=== PATIENT | male | born 1980 | race Caucasian/White ===

== ENCOUNTER 2018-12-04 18:32 | Emergency (ER) | payer SELFPAY ==
--- NOTE | 2018-12-04 18:35 | ER Report ---
History and Physical Time Seen By MD: 18:34 HPI/ROS CHIEF COMPLAINT: Blurry vision, intraparenchymal hemorrhage HISTORY OF PRESENT ILLNESS: Patient is a 38-year-old male here with complaints of left frontal visual field blurry vision which developed approximately one week ago after the patient was helping a friend move. Patient reports lifting heavy objects at which time he developed a headache, blurry vision. Today he was seen by an lace cutter who referred the patient to the emergency department however the patient decided to proceed to the urgent care. Patient was identified to have a small right occipital intraparenchymal hemorrhage with surrounding edema which prompted transfer to the emergency department. Patient denies motor weakness, new paresthesias. He does describe left frontal visual field deficits but denies diplopia. Patient denies having a headache at this time, difficulty breathing, difficulty swallowing, fevers or chills, chest pain or shortness breath. REVIEW OF SYSTEMS: Constitutional: No fever, no chills. Eyes: + left frontal visual field deficits with blurry vision ENT: No sore throat. Cardiovascular: No chest pain, no palpitations. Respiratory: No cough, no shortness of breath. Gastrointestinal: No abdominal pain, no vomiting. Genitourinary: No hematuria. Musculoskeletal: No back pain. Skin: No rashes. Neurological: No headache, + blurry vision, no motor weaknesses, CN intact Allergies: Coded Allergies: No Known Drug Allergies (Unverified , 12/04/18) Home Meds No Active Prescriptions or Reported Meds Constitutional Vital Sign - Last 24 Hours 12/04/18 12/04/18 12/04/18 12/04/18 18:37 18:47 19:00 19:02 Temp 98.6 Pulse 92 82 83 Resp 14 B/P (MAP) 166/117 153/109 (124) Pulse Ox 93 93 95 O2 Delivery Room Air 12/04/18 12/04/18 12/04/18 12/04/18 19:17 19:30 19:32 20:30 Pulse 85 ??? B/P (MAP) 150/108 (122) 148/108 (121) Pulse Ox 94 94 12/04/18 12/04/18 12/04/18 12/04/18 20:35 20:50 21:00 21:05 Pulse 78 ??? 84 Resp 25 42 19 B/P (MAP) 153/108 (123) Pulse Ox 94 94 94 12/04/18 12/04/18 12/04/18 12/04/18 21:20 21:30 21:35 21:50 Pulse ??? 83 89 Resp 40 28 13 B/P (MAP) 150/105 (120) Pulse Ox 94 94 93 12/04/18 12/04/18 12/04/18 12/04/18 21:55 22:10 22:25 22:30 Pulse 71 ? Resp 20 B/P (MAP) ???/??? (1665) 12/04/18 12/04/18 12/04/18 12/04/18 22:40 22:55 23:10 23:25 Pulse 73 87 ??? 71 Resp 14 51 8 21 Pulse Ox 94 95 91 12/04/18 23:40 Pulse ??? Resp 17 Pulse Ox 91 Physical Exam General Appearance: The patient is alert, has no immediate need for airway p rotection and no signs of toxicity. NAD Eyes: Pupils equal and round no pallor or injection, + EOMI intact ENT, Mouth: Mucous membranes are moist. Respiratory: There are no retractions, lungs are clear to auscultation. Cardiovascular: Regular rate and rhythm. Gastrointestinal: Abdomen is soft and non tender, no masses, bowel sounds normal. Neurological: Left frontal visual field deficits, CN intact, no motor weakness, dysphagia Skin: Warm and dry, no rashes. Musculoskeletal: Neck is supple non tender. Extremities are nontender, nonswollen and have full range of motion. DIFFERENTIAL DIAGNOSIS: After history and physical exam differential diagnosis was considered for intracranial hemorrhage, intraparenchymal hemorrhage, hypertensive hemorrhage, increased intracranial pressure, cerebral edema Medical Decision Making Data Points Result Diagram: 12/04/18 1845 12/04/18 184 Laboratory Hematology Test 12/04/18 18:45 Red Blood Count 4.36 M/uL (4.00-5.60) Mean Corpuscular Volume 99.7 fL (80.0-96.0) Mean Corpuscular Hemoglobin 34.2 pg (26.0-33.0) Mean Corpuscular Hemoglobin Concent 34.4 g/dL (32.0-36.0) Red Cell Distribution Width 14.1 % (11.5-14.5) Mean Platelet Volume 6.8 fL (7.2-11.1) Neutrophils (%) (Auto) 63.8 % (39.4-72.5) Lymphocytes (%) (Auto) 24.1 % (17.6-49.6) Monocytes (%) (Auto) 10.7 % (4.1-12.4) Eosinophils (%) (Auto) 0.8 % (0.4-6.7) Basophils (%) (Auto) 0.6 % (0.3-1.4) Nucleated RBC Relative Count (auto) 0.1 /100WBC Neutrophils # (Auto) 3.2 K/uL (2.0-7.4) Lymphocytes # (Auto) 1.2 K/uL (1.3-3.6) Monocytes # (Auto) 0.5 K/uL (0.3-1.0) Eosinophils # (Auto) 0.0 K/uL (0.0-0.5) Basophils # (Auto) 0.0 K/uL (0.0-0.1) Nucleated RBC Absolute Count (auto) 0.00 K/uL Peripheral Blood Smear Yes Y/N Erythrocyte Sedimentation Rate 4 mm/HOUR (0-15) Prothrombin Time 16.9 seconds (12.0-14.4) Prothromb Time International Ratio 1.36 Activated Partial Thromboplast Time 38 seconds (23-35) Sodium Level 134 mmol/L (137-145) Potassium Level 3.9 mmol/L (3.5-5.0) Chloride Level 95 mmol/L (98-107) Carbon Dioxide Level 22 mmol/L (22-30) Blood Urea Nitrogen 5 mg/dl (9-21) Creatinine 0.70 mg/dl (0.66-1.25) Glomerular Filtration Rate Calc > 60.0 Random Glucose 90 mg/dl (75-110) Calcium Level 9.0 mg/dl (8.4-10.2) Total Bilirubin 1.9 mg/dl (0.2-1.3) Aspartate Amino Transf (AST/SGOT) 149 U/L (0-35) Alanine Aminotransferase (ALT/SGPT) 71 U/L (0-56) Alkaline Phosphatase 76 U/L (0-126) Total Protein 8.2 g/dl (6.3-8.2) Albumin 4.6 g/dl (3.5-5.0) Chemistry Test 12/04/18 18:45 White Blood Count 5.0 k/uL (4.5-11.0) Red Blood Count 4.36 M/uL (4.00-5.60) Hemoglobin 14.9 g/dL (14.0-18.0) Hematocrit 43.4 % (42.0-52.0) Mean Corpuscular Volume 99.7 fL (80.0-96.0) Mean Corpuscular Hemoglobin 34.2 pg (26.0-33.0) Mean Corpuscular Hemoglobin Concent 34.4 g/dL (32.0-36.0) Red Cell Distribution Width 14.1 % (11.5-14.5) Platelet Count 74 K/uL (150-450) Mean Platelet Volume 6.8 fL (7.2-11.1) Neutrophils (%) (Auto) 63.8 % (39.4-72.5) Lymphocytes (%) (Auto) 24.1 % (17.6-49.6) Monocytes (%) (Auto) 10.7 % (4.1-12.4) Eosinophils (%) (Auto) 0.8 % (0.4-6.7) Basophils (%) (Auto) 0.6 % (0.3-1.4) Nucleated RBC Relative Count (auto) 0.1 /100WBC Neutrophils # (Auto) 3.2 K/uL (2.0-7.4) Lymphocytes # (Auto) 1.2 K/uL (1.3-3.6) Monocytes # (Auto) 0.5 K/uL (0.3-1.0) Eosinophils # (Auto) 0.0 K/uL (0.0-0.5) Basophils # (Auto) 0.0 K/uL (0.0-0.1) Nucleated RBC Absolute Count (auto) 0.00 K/uL Peripheral Blood Smear Yes Y/N Erythrocyte Sedimentation Rate 4 mm/HOUR (0-15) Prothrombin Time 16.9 seconds (12.0-14.4) Prothromb Time International Ratio 1.36 Activated Partial Thromboplast Time 38 seconds (23-35) Glomerular Filtration Rate Calc > 60.0 Calcium Level 9.0 mg/dl (8.4-10.2) Total Bilirubin 1.9 mg/dl (0.2-1.3) Aspartate Amino Transf (AST/SGOT) 149 U/L (0-35) Alanine Aminotransferase (ALT/SGPT) 71 U/L (0-56) Alkaline Phosphatase 76 U/L (0-126) Total Protein 8.2 g/dl (6.3-8.2) Albumin 4.6 g/dl (3.5-5.0) Coagulation Test 12/04/18 18:45 Prothrombin Time 16.9 seconds Prothromb Time International Ratio 1.36 Activated Partial Thromboplast Time 38 seconds EKG/Imaging Imaging PATIENT NAME: Wilian Tyler : 1980 MR: [id number] V: [id number] EXAM DATE: ORDERING PHYSICIAN: CORRINE BAKER TECHNOLOGIST: Location: [facility] Patient: Wilian Tyler : 1980 Visit/Account:[id number] Date of Sevice: 12/04/2018 EXAMINATION: MRI Brain without IV contrast MRI Brain with IV contrast 12/04/2018 6:35 PM HISTORY: IPH right occiput TECHNIQUE: Multi-planar, multi-sequence brain MRI was performed before and after IV gadolinium. Contrast: 15 mL of IV Multihance COMPARISON STUDIES: CT head today FINDINGS: Ventricles / sulci / fissures: negative Masses / hemorrhage / midline shift: Posterior medial right occipital hematoma measures 2.5 x 1.9 x 2.1 cm. There is some surrounding parenchymal edema. No underlying mass or vascular malformation evident. White matter: Edema adjacent to the occipital hematoma, as above. No significant acute finding otherwise. Torres-white differentiation: No acute stroke evident. Extra-axial spaces: negative Calvarium: negative Enhancement pattern: negative Vascular structures: negative Sagittal midline structures: negative Paranasal sinuses / mastoid air cells: Lobulated mucosal thickening or retention cyst formation within the maxillary's. Milder ethmoid sinus mucosal changes. Nasal septal deviation. Orbits: negative Visualized upper neck: negative IMPRESSION: 1. 2.5 cm acute hematoma in the posterior medial right occipital lobe. Small amount of surrounding parenchymal edema. No clear associated mass or vascular malformation as etiology for the bleeding demonstrated. A small focus might potentially be obscured by the hematoma. 2. Otherwise unremarkable study. Report Dictated By: Rodriguez Morales MD at 12/04/2018 9:16 PM ED Course/Re-evaluation ED Course Patient is a 38-year-old male who developed headache after lifting a heavy object approximately one week ago. Patient developed blurry vision especially in the left visual field which was evaluated today by ophthalmology prompting transfer to urgent care and subsequently to emergency department. CT imaging completed by urgent care identified a right is supple hemorrhagic bleed. Patient was evaluated in the emergency department at which time MRI was completed. Di agnosis was confirmed. I discussed the patient with Dr. Haq with neurosurgery at [facility] who accepted the patient in transfer. I discussed these findings with the patient and he voiced understanding and was transferred in stable condition to [place] for further treatment. Decision to Disposition Date: December 04, 2018 Decision to Disposition Time: 23:50 Depart Departure Latest Vital Signs Vital Signs Date Time Temp Pulse Resp B/P (MAP) Pulse Ox O2 Delivery O2 Flow Rate FiO2 12/04/18 23:40 ??? 17 91 12/04/18 22:30 ???/??? (1665) 12/04/18 18:37 98.6 Room Air Impression: Primary Impression: Intraparenchymal hemorrhage of brain Condition: Condition Unchanged Disposition: XFER TO [facility] New Scripts No Active Prescriptions or Reported Meds CORRINE BAKER DO December 04, 2018 18:35
[2018-12-04 18:51] LABS: PLATELET COUNT, AUTOMATED 74 K/uL (150-450)
[2018-12-04 19:09] LABS: INR 1.36
[2018-12-04] MEDS ORDERED: GADOBENATE 529MG/1ML 15ML VIAL IVP ONE (20:00)
--- NOTE | 2018-12-04 21:27 | RADIOLOGY IMAGING REPORT ---
FACILITY: [facility] - [place] PATIENT NAME: Wilian Tyler : 1980 MR: [id number] V: [id number] EXAM DATE: ORDERING PHYSICIAN: CORRINE BAKER TECHNOLOGIST: Location: [facility] - [place] Patient: Wilian Tyler : 1980 Visit/Account:[id number] Date of Sevice: 12/04/2018 EXAMINATION: MRI Brain without IV contrast MRI Brain with IV contrast 12/04/2018 6:35 PM HISTORY: IPH right occiput TECHNIQUE: Multi-planar, multi-sequence brain MRI was performed before and after IV gadolinium. Contrast: 15 mL of IV Multihance COMPARISON STUDIES: CT head today FINDINGS: Ventricles / sulci / fissures: negative Masses / hemorrhage / midline shift: Posterior medial right occipital hematoma measures 2.5 x 1.9 x 2 .1 cm. There is some surrounding parenchymal edema. No underlying mass or vascular malformation evide nt. White matter: Edema adjacent to the occipital hematoma, as above. No significant acute finding otherw ise. Torres-white differentiation: No acute stroke evident. Extra-axial spaces: negative Calvarium: negative Enhancement pattern: negative Vascular structures: negative Sagittal midline structures: negative Paranasal sinuses / mastoid air cells: Lobulated mucosal thickening or retention cyst formation withi n the maxillary's. Milder ethmoid sinus mucosal changes. Nasal septal deviation. Orbits: negative Visualized upper neck: negative IMPRESSION: 1. 2.5 cm acute hematoma in the posterior medial right occipital lobe. Small amount of surrounding pa renchymal edema. No clear associated mass or vascular malformation as etiology for the bleeding demon strated. A small focus might potentially be obscured by the hematoma. 2. Otherwise unremarkable study. Report Dictated By: Rodriguez Morales MD at 12/04/2018 9:16 PM Report E-Signed By: Rodriguez Morales MD at 12/04/2018 9:24 PM WSN:[id number]
== END 2018-12-05 00:50 | disposition short-term general hospital (02) ==
LOC: ER 18:49
DX: I61.8 Other nontraumatic intracerebral hemorrhage (principal)
CPT/HCPCS: 36415; 70553; 85025; 85610; 85651; 85730; 86850; 86900; 86901; 99285; A9577; 82040; 82247; 82310; 82374; 82435; 82565; 82947; 84075; 84132; 84155; 84295; 84450; 84460; 84520

== ENCOUNTER → 2018-12-04 | Outpatient (CLI) | payer SELFPAY ==
--- NOTE | 2018-12-04 18:09 | RADIOLOGY IMAGING REPORT ---
FACILITY: [facility] [place] PATIENT NAME: Wilian Tyler : 1980 MR: [id number] V: [id number] EXAM DATE: ORDERING PHYSICIAN: ANTONIO WISE TECHNOLOGIST: [place] [facility] [place] Patient: Wilian Tyler : 1980 Visit/Account:[id number] Date of Sevice: 12/04/2018 EXAMINATION: Head CT without intravenous contrast HISTORY: Blurred vision x1 week TECHNIQUE: Contiguous axial images were obtained from the skull base to the vertex without intraven ous contrast. Sagittal and coronal reformatted images are also submitted. Dose Lowering Technique One of the following dose optimization techniques was utilized in the performance of this exam: Autom ated exposure control; adjustment of the mA and/or kV according to the patient's size; or use of an i terative reconstruction technique. Specific details can be referenced in the facility's radiology C T exam operational policy. COMPARISON: None. FINDINGS: Brain volume: Normal. Ventricles: Normal. Acute ischemic changes: None. Hemorrhage: There is a 2.2 x 1.8 x 2.2 cm intraparenchymal hemorrhage with mild surrounding white ma tter edema although no significant mass effect located within the right occipital lobe. Masses / edema: As described above Torres-white: Negative. White matter: Normal. Vessels: Negative. Extra-axial: Negative. Calvarium / scalp: Negative. Skull base / visualized face: Negative. Visualized sinuses / orbits: There is marked deviation the nasal septum. There are polypoid lesions in both maxillary sinuses and possibly representing mucous retention cysts IMPRESSION: There is a 2.2 x 1.8 x 2.2 cm intraparenchymal hemorrhage with mild surrounding white matter edema in the right occipital lobe although no significant mass effect. The differential diagnosis would incl ude a vascular malformation with hemorrhage, hemorrhagic primary brain tumor, hemorrhagic metastasis, a posttraumatic hemorrhage or hypertensive hemorrhage. MR the brain with and without contrast recom mended Results were called to ANTONIO WISE at 12/04/2018 6:05 PM. Report Dictated By: Andie Esteban MD at 12/04/2018 5:51 PM Report E-Signed By: Andie Esteban MD at 12/04/2018 6:05 PM [id number]
== END ==
LOC: CT 16:56
PROVIDERS: ATTEND Nurse Practitioner Family
DX: H53.9 Unspecified visual disturbance (principal)
CPT/HCPCS: 70450